=== PATIENT | male | born 1985 | race Caucasian/White ===

== ENCOUNTER 2017-03-23 22:32 | Emergency (ER) | payer OTHER | END 2017-03-24 00:43 | disposition other institution (70) | LOC: ED 22:32 | DX: Z02.89 Encounter for other administrative examinations (principal) ==

== ENCOUNTER 2017-03-23 22:32 | Emergency (ER) | payer SELFPAY ==
[2017-03-24 00:43] VITALS: BP 139/92
== END 2017-03-24 00:43 | disposition other institution (70) ==
LOC: ED 22:32
DX: S43.101A Unspecified dislocation of right acromioclavicular joint, initial encounter (principal); Y04.0XXA Assault by unarmed brawl or fight, initial encounter; Y93.89 Activity, other specified; Y92.89 Other specified places as the place of occurrence of the external cause; Y99.8 Other external cause status